=== PATIENT | male | born 1985 | race Caucasian/White ===

== ENCOUNTER 2019-05-30 | Emergency (ER) | payer OTHER ==
[2019-05-30] MEDS ORDERED: POLYTRIM OU (22:08)
== END 2019-05-30 23:09 | disposition home or self-care (01) ==
DX: T15.01XA Foreign body in cornea, right eye, initial encounter (principal); F17.290 Nicotine dependence, other tobacco product, uncomplicated; X58.XXXA Exposure to other specified factors, initial encounter